=== PATIENT | female | born 1975 | race Caucasian/White ===

== ENCOUNTER 2019-11-17 02:17 | Emergency (ER) | payer OTHER ==
[~2019-11-17] VITALS: Ht 167.6 cm; Wt 83.9 kg
[~2019-11-17 02:17] MED LIST: DIPH50 PO; FAMO40 PO; FASTIN; PRED20 PO; PROM25 PO; RANI150 PO; [UNRECOGNIZED DRUG - REMARK]
[2019-11-17] MEDS ORDERED: Azithromycin250 MG PO (02:28)
[2019-11-17] MEDS ORDERED: DIAZ5 PO (02:28)
== END 2019-11-17 03:40 | disposition home or self-care (01) ==
LOC: ER 02:17
DX: R06.00 Dyspnea, unspecified (principal); K29.70 Gastritis, unspecified, without bleeding; Z79.899 Other long term (current) drug therapy; Z88.0 Allergy status to penicillin; Z88.2 Allergy status to sulfonamides; Z88.5 Allergy status to narcotic agent; Z91.040 Latex allergy status
CPT/HCPCS: 93005; 93010; 99283-25

== ENCOUNTER → 2020-09-16 | Outpatient (CLI) | payer OTHER ==
[~2020-09-16] MED LIST changes: +Azithromycin250 MG PO; +DIAZ5 PO
== END | disposition home or self-care (01) ==
LOC: LAB 09:46 → LAB SHORT 09:46
DX: H93.8X1 Other specified disorders of right ear (principal)
CPT/HCPCS: 87070; 87205

== ENCOUNTER → 2024-06-18 | Outpatient (CLI) | payer OTHER | LOC: LAB SHORT 07:04 → LAB 07:04 | DX: R30.0 Dysuria (principal) | CPT/HCPCS: 87086 ==